=== PATIENT | male | born 1995 | race Two or more races ===

== ENCOUNTER 2018-05-27 09:37 | Emergency (ER) | payer OTHER ==
[~2018-05-27] VITALS: Ht 177.8 cm; Wt 61.2 kg
[~2018-05-27 09:37] MED LIST: ADDERALL 20 MG20 MG
== END 2018-05-27 12:39 | disposition home or self-care (01) ==
LOC: ER 09:37
DX: S93.402A Sprain of unspecified ligament of left ankle, initial encounter (principal); X50.3XXA Overexertion from repetitive movements, initial encounter; Y93.66 Activity, soccer; Y92.89 Other specified places as the place of occurrence of the external cause; Y99.8 Other external cause status

== ENCOUNTER 2023-12-23 11:10 | Emergency (ER) | payer OTHER ==
[~2023-12-23] VITALS: Ht 177.8 cm; Wt 63.5 kg
[2023-12-23] MEDS ORDERED: KETOROLAC TROMETHAMINE 60 MG VIAL IM ONE (12:30)
[2023-12-23] MEDS ORDERED: ORPHENADRINE CITRATE 30 MG/ML AMPUL IM ONE (12:30)
[2023-12-23 13:48] LABS: HEMATOCRIT 45.3 % (39.0-48.0); HEMOGLOBIN 15.6 g/dL (13-16.00); MEAN CELL VOLUME 82.3 fL (80.0-100.00); MEAN CORPUSCULAR HEMOGLOBIN 28.4 pg (27.00-32.0); MEAN CORPUSCULAR HGB CONC 34.5 g/dl (32.0-36.0); PLATELET COUNT 161 K/uL (150-450); RED BLOOD COUNT 5.51 M/uL (4.00-6.00); RED CELL DISTRIBUTION WIDTH 13.8 % (11.5-14.5)
[2023-12-23 14:10] LABS: CALCIUM 9.7 mg/dL (8.5-10.1); GFR 88.34; POTASSIUM 4.21 mEq/L (3.5-5.1)
== END 2023-12-23 17:21 | disposition home or self-care (01) ==
LOC: ER 11:12
PROVIDERS: General Practice
DX: R22.9 Localized swelling, mass and lump, unspecified (principal); M25.512 Pain in left shoulder